=== PATIENT | female | born 1960 | race Caucasian/White ===

== ENCOUNTER 2017-05-31 14:05 | Emergency (ER) | payer OTHER ==
[~2017-05-31] VITALS: Ht 175.3 cm; Wt 106.1 kg
[2017-05-31] MEDS ORDERED: SODIUM CHLORIDE FLUSH 10ML SYR IVF ONE (14:30)
[2017-05-31] MEDS ORDERED: SODIUM CHLORIDE 0.9% 1,000ML IVBOLUS ONE (14:30)
[2017-05-31 14:52] LABS: HEMOGLOBIN 15.9 g/dL (11.7-16.4); WHITE BLOOD COUNT 10.8 x10^3/uL (3.4-10)
[2017-05-31 15:00] LABS: ASPARTATE AMINO TRANSFERASE 34 U/L (15-37); BLOOD UREA NITROGEN 9 mg/dL (7-18)
[2017-05-31 17:32] VITALS: BP 130/76
== END 2017-05-31 17:41 | disposition home or self-care (01) ==
LOC: ED 15:50
DX: R19.7 Diarrhea, unspecified (principal)
CPT/HCPCS: 36415; 74020; 80053; 83690; 84703; 85025; 96360; 96361; 99285; J7030

== ENCOUNTER 2021-02-19 20:21 | Emergency (ER) | payer MEDICAID ==
[~2021-02-19] VITALS: Ht 165.1 cm; Wt 110.0 kg
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
[2021-02-19] MEDS ORDERED: THIAMINE 100MG TABLET PO ONE (21:30)
[2021-02-19 22:21] VITALS: BP 114/77
--- NOTE | 2021-02-19 22:23 | NUR ---
Patient is resting comfortably in bed. Bed in lowest, rails engaged, call light on lap. Vital Signs within normal limits. NAD, medicated per sep, lights dimmed for comfort, awaiting rad read. WCTM.
[2021-02-19] MEDS ORDERED: THIAMINE 100MG TABLET ONE (22:25)
--- NOTE | 2021-02-19 23:55 | NUR ---
Patient is resting comfortably in bed. Bed in lowest, rails engaged, call light on lap. Vital Signs within normal limits. NAD, awaiting rad read. WCTM.
--- NOTE | 2021-02-20 01:49 | NUR ---
Patient given discharge instructions and they have confirmed that they understand the instructions. Patient ambulatory with steady gait to dc desk. NAD, all questions answered appropriately, denies additional needs at this time. No personal belongings left in room after discharge.
== END 2021-02-20 01:51 | disposition home or self-care (01) ==
LOC: ED 21:30
DX: S00.81XA Abrasion of other part of head, initial encounter (principal); M25.561 Pain in right knee; F10.220 Alcohol dependence with intoxication, uncomplicated; Y90.0 Blood alcohol level of less than 20 mg/100 ml; W01.0XXA Fall on same level from slipping, tripping and stumbling without subsequent striking against object, initial encounter; Y93.89 Activity, other specified; Y92.410 Unspecified street and highway as the place of occurrence of the external cause; Y99.8 Other external cause status
CPT/HCPCS: 70450; 72125; 99285